=== PATIENT | male | born 1950 | race Caucasian/White ===

== ENCOUNTER 2016-12-08 01:09 | Inpatient (IN) ==
[2016-12-08] MEDS ORDERED: Vancomycin 1,000 MG in D5% in Water 250 ML IVPB ONE (01:16)
[2016-12-08] MEDS ORDERED: Levofloxacin 750 MG/150 ML 750 MG/150 ML BAG IVPB ONE (01:16)
[2016-12-08] MEDS ORDERED: Aztreonam 2,000 MG in D5% in Water (Mini-Bag+) 100 ML IVPB ONE (01:16)
[2016-12-08] MEDS: 0.9 % Sodium Chloride 1,000 ML IVC SCH ×4 (02:03→22:00)
[2016-12-08 02:11] LABS: Basophils % 0.1 %; Red Cell Distribution Width 14.6 % (11.5-14.5)
[2016-12-08 02:13] LABS: Hematocrit 34.8 % (37.5-50.1); Hemoglobin 10.9 g/dL (12.9-16.9); Immature Granulocytes % 1.7 % (0-4); Lymphocytes # 1.5 K/mcL (0.6-4.6); Lymphocytes % 5.4 %; Mean Corpuscular HGB Conc 31.3 g/dL (31.6-35.5); Mean Corpuscular Volume 92.6 fL (83.0-100.0); Mean Platelet Volume 11.1 fL (9.4-12.4); Monocytes % 7.3 %; Platelet Count 239 K/mcL (140-400); Red Blood Count 3.76 M/mcL (4.19-5.50); Segmented Neutrophils % 85.5 %
[2016-12-08 02:15] LABS: Neutrophils # 23.9 K/mcL (1.6-8.9)
[2016-12-08 02:16] LABS: INR 1.4; Prothrombin Time 15.7 Seconds (9.4-12.1)
[2016-12-08 02:26] LABS: Alanine Aminotransferase 19 Units/L (0-55); Albumin 2.4 g/dL (3.5-5.0); Albumin/Globulin Ratio 0.6 (1.1-2.2); Alkaline Phosphatase 50 Units/L (38-126); Aspartate Amino Transferase 21 Units/L (5-34); BUN/Creatinine Ratio 17 (6-26); Bilirubin,Direct 0.3 mg/dL (0.0-0.5); Bilirubin,Indirect 0.4 mg/dL (0.0-1.2); Bilirubin,Total 0.7 mg/dL (0.2-1.2); Blood Urea Nitrogen 19 mg/dL (8-26); Calcium 9.4 mg/dL (8.6-10.8); Carbon Dioxide 26 mEq/L (19-29); Chloride 109 mEq/L (98-109); Globulin 3.8 g/dL (2.4-3.5); Glucose 101 mg/dL (70-99); Magnesium 1.8 mg/dL (1.6-2.6); Osmolality,Calculated 296 (280-300); Phosphorous 4.7 mg/dL (2.3-4.7); Potassium 4.2 mEq/L (3.5-4.5); Sodium 142 mEq/L (136-145); Total Protein 6.2 g/dL (6.0-8.3); eGFR For African Americans > 60 (> 60); eGFR For Non-African Americans > 60 (> 60)
[2016-12-08 02:28] LABS: Platelet Estimate Normal (Normal); Reactive Lymphocytes Present (Not Present)
[2016-12-08 02:29] LABS: Hypersegmented Neutrophils Present (Not Present)
[2016-12-08 04:01] LABS: Bilirubin,Urine Small (Negative); Blood,Urine Large (Negative); Clarity,Urine Turbid (Clear); Color,Urine Dark Yellow (Yellow); Glucose,Urine (UA) Normal (Normal); Ketones,Urine Trace mg/dL (Negative); Leukocyte Esterase,Urine Moderate (Negative); Nitrite,Urine Negative (Negative); PH,Urine 5.5 pH Units (5.0-8.0); Protein,Urine 100 mg/dL (Neg-Trace); Specific Gravity,Urine 1.029 (1.010-1.025); Urobilinogen,Urine Normal (Normal)
[2016-12-08 04:08] LABS: WBC,Urine TNTC per hpf (0-3)
[2016-12-08 04:12] LABS: Bacteria,Urine Many per hpf (None-Few)
[2016-12-08 04:13] LABS: RBC,Urine Present per hpf (0-3)
--- NOTE | 2016-12-08 04:22 | Emergency Department Note ---
Disposition Clinical Impression: Pneumonia Qualifiers: Pneumonia type: due to unspecified organism Laterality: unspecified laterality Lung location: unspecified part of lung Qualified Code(s): J18.9 - Pneumonia, unspecified organism Fever Qualifiers: Fever type: unspecified Qualified Code(s): R50.9 - Fever, unspecified Urinary tract infection Qualifiers: Urinary tract infection type: acute cystitis Hematuria presence: without hematuria Qualified Code(s): N30.00 - Acute cystitis without hematuria Hypotension Qualifiers: Hypotension type: unspecified hypotension type Qualified Code(s): I95.9 - Hypotension, unspecified Urethral injury Qualifiers: Encounter type: initial encounter Qualified Code(s): S37.30XA - Unspecified injury of urethra, initial encounter Disposition: Admitted As Inpatient Condition: Fair Referrals: NO,PCP [Non-Partnered Physician] - Forms: Work/School Release, ED Satisfaction Letter Time of Disposition: 05:04 Fever HPI - General Chief Complaint: ED General Medical Stated Complaint: hypotension Time Seen by Provider: 12/08/16 01:16 Source: patient, EMS Limitations: no limitations Nursing Notes Reviewed: Yes Vital Signs Reviewed: Yes - History of Present Illness HPI Narrative: Patient presents from the [facility] for evaluation of fever and hypotension. He is not on the long-term care facilities there. If found to have altered mentation as well as a fever up to 104.1. There unable to treat these issues at their facility and recommended transfer to our facility for definitive management. Patient's primary care provider and power of civil attorney for medical decisions as his sister as she wanted him evaluated and treated. Pt Subjective Complaint: fever Onset (ago): Just LAP WINDER Temperature Source: oral Associated symptoms: Reports: cough Improves with: nothing Worsens with: nothing Treatments prior to arrival fever: none - Related Data Allergies Allergy/AdvReac Type Severity Reaction Status Date / Time Penicillins Allergy Anaphylaxis Verified 06/27/15 17:42 All systems ED: reviewed and negative except as stated. Constitutional: Reports: fever. Denies: chills Cardiovascular: Denies: chest pain, palpitations, dyspnea on exertion Respiratory: Reports: cough, sputum production. Denies: dyspnea, wheezes Gastrointestinal: Denies: abdominal pain, nausea, vomiting, diarrhea Genitourinary: Denies: dysuria, frequency Musculoskeletal: Denies: back pain, neck pain Integumentary: Denies: rash Neurological: Denies: headache Endocrine: Denies: fatigue Fever PMH - Past Medical History Medical history: Reports: seizures, thyroid disease, other Psychiatric history: Reports: anxiety, PTSD, prior suicide attempt, schizophrenia, previous psychiatric hospitalization, other - Social History Smoking Status: Former smoker Alcohol use: Reports: none Drug use: Reports: none Physical Exam - General Limitations: no limitations General appearance: alert - Head Head exam: atraumatic, normocephalic, normal inspection - Eye Eye exam: Present: normal appearance, PERRL, EOMI - ENT ENT exam: normal exam, normal oropharynx, mucous membranes moist - Neck Neck exam: Present: normal inspection, full ROM, trachea midline - Chest Chest inspection: Present: normal inspection, symmetric chest wall rise - Respiratory Respiratory exam: Present: normal lung sounds bilaterally - Cardiovascular Cardiovascular exam: Present: regular rate, normal rhythm, normal heart sounds - Abdominal Exam Abdominal exam: Present: soft, Non-Tender. Absent: tenderness, distention, guarding, rebound, rigidity, Gongora's sign, Rovsing's sign, tenderness at McBurney's Point - Extremities Exam Extremities exam: Present: normal inspection - Back Exam Back exam: Present: normal inspection - Neurological Exam Neurological exam: Present: alert, oriented X3, CN II-XII intact, normal gait - Skin Skin exam: Present: warm, dry, intact, normal color Course Course Narrative: Patient seen and examined the time of arrival. See history of present illness. 66-year-old male presents to emergency room for evaluation of fever and altered mental status from [facility]. He is in a long-term care facility there. There is concern using running no fever up to 104.1 as well as hypotension. Did not have the ability to manage his severe episode and decided to come into the ER for evaluation. Patient otherwise is no other acute issues or symptoms at this time. On presentation by EMS patient's blood pressure still been marginal at 72/40. He is mentating answering questions. His diminished lung sounds in the left side his heart is regular is not tachycardic. He has pupils are equal round reactive to light. His mucous membranes are slightly dry. His abdomen is soft nontender nondistended with no guarding or rigidity. Lower extremities are flaccid at this time of extremities he moves with purpose. Skin turgor is poor. Patient will have fluid hydration state. The 30 mg/kg dosing which should be approximately 2 mm at this time. Patient also to be given large doses of antibiotics broad- spectrum coverage including aztreonam, Levaquin, vancomycin. Patient will have evaluation a CT of the head chest x-ray and CT the abdomen along with urinalysis blood cultures to be collected. Patient is concerning for possible sepsis of unknown etiology. Most likely pulmonary or urinary tract infection this time. Patient is a pires of the replaced by [facility] as well as supposedly having a sister who is the patient's medical power of civil attorney. They are requesting to have full evaluation treatment course. Patient is to be treated as a full code. Disposition pending this workup and treatment course. 2 large-bore IVs fluid hydration and restart at this time. Disposition pending treatment - Reevaluation(s) Reevaluation #1: Patient on a significantly elevated white blood cell count of 28. Antibiotics were given. IV access is difficult secondary to poor vessels. Nursing is going to tentatively some midline for IV access this time. He was fluid responsive initially. Boluses were going. Heart rate has been stable patient is mentating appropriately this point. Disposition will be admission to the hospital for it appears to be focal infectious etiology secondary to pneumonia and urinary tract infection. Otherwise patient has been in no acute distress resting in the bed at this time. We will attempt to contact family to make sure this is within the wishes of the patient secondary to his baseline mentation issues. Admission process to be completed once this evaluation treatment course and resulted. Patient's family was contacted via home by the nursing staff. Evaluate for possible central line placement. Time: 04:42 Reevaluation #2: Blood pressures were stable at this time. Last blood pressure was 100/65. Patient still mentating appropriately. IV access to be completed here. Admission process to be completed once definitive IV access established Time: 05:46 Reevaluation #3: Patient removed his Franco with the balloon intact. There is bleeding from the urethral meatus. Patient will be placed in soft restraints and then IV line will be established in the internal jugular vein for definitive management. Patient is concerning for decompensation. This is done under the request of the family with verbal consent from the family is medical power of civil attorney.. Central line placement on a complication the right groin secondary to IV access. Patient did remove his Franco Time: 06:11 Additional Reevaluation(s): Information including the urethral injury as well as a central line were discussed with the daytime hospitalist. No other issues or concerns at this time. Assess to be completed this time Vital Signs Temperature 98.5 F 12/08/16 01:13 Pulse Rate 84 12/08/16 01:13 Respiratory Rate 20 12/08/16 01:13 Blood Pressure 80/45 12/08/16 01:13 O2 Sat by Pulse Oximetry 94 12/08/16 01:13 Temperature 98.5 F 12/08/16 01:13 Pulse Rate 85 12/08/16 01:50 Respiratory Rate 20 12/08/16 01:50 Blood Pressure 104/50 12/08/16 01:50 O2 Sat by Pulse Oximetry 100 12/08/16 01:50 Oxygen Delivery Oxygen Delivery Nasal Cannula Procedures - Central Line Placement Right Femoral Central Line Inserted*: Yes Central Line Catheter Replacement*: Yes Central Line Insertion: emergent Consent Obtained: verbal consent Procedural Pause: verify patient name and date of , timeout performed per policy, sunil and assess the site, assemble equipment and verify supplies, perform hand hygiene During the Procedure: clinician is wearing sterile gloves, cap, mask,& gown during insertion, sterile field and sterile technique are maintained, patient's face is covered with drape or mask and wearing a cap, everyone in room is wearing a mask Central Line Prep: Chlorhexidine scrub Prep the Procedure Site: apply chloraprep to the skin using a back and forth scrubbing motion, apply chloraprep for 30 seconds (upper body), 1-2 min ( femoral sites), drape the patient with a full body drape Local Anesthetic: lidocaine 1% Amount of anesthesia used (mL): 10 Ultrasound Used for Placement: No Central Line Lumen Inserted: triple Post Procedure: sutured in place, good blood return, all ports aspirated, flushed, capped, sterile dressing applied, guide wire removed and visualized, dressing is dated Fever - MDM Narrative Medical decision making narrative: Pneumonia, urinary tract infection, fever, hypotension, sepsis - Medical Records Medical records reviewed: Yes I reviewed the patient's medical records. - Lab Data Lab results reviewed: Yes I reviewed the patient's lab results. Result diagrams: 12/08/16 02:02 12/08/16 02:02 Lab Results 0712/08/16 12/08/16 Range/Units 02:02 02:02 02:02 WBC 28.0 H (4.3-11.1) K/mcL RBC 3.76 L (4.19-5.50) M/mcL Hgb 10.9 L (12.9-16.9) g/dL Hct 34.8 L (37.5-50.1) % MCV 92.6 (83.0-100.0) fL MCH 29.0 (28.0-33.3) pg MCHC 31.3 L (31.6-35.5) g/dL RDW 14.6 H (11.5-14.5) % Plt Count 239 (140-400) K/mcL MPV 11.1 (9.4-12.4) fL Immature Gran % 1.7 (0-4) % Seg Neutrophils % 85.5 % Lymphocytes % 5.4 % Monocytes % 7.3 % Eosinophils % 0.0 % Basophils % 0.1 % Neutrophils # 23.9 H (1.6-8.9) K/mcL Lymphocytes # 1.5 (0.6-4.6) K/mcL Monocytes # 2.0 H (0.0-1.3) K/mcL Eosinophils # 0.0 (0.0-0.6) K/mcL Basophils # 0.0 (0.0-0.2) K/mcL Hypersegmented Neuts Present A (Not Present) Reactive Lymphocytes Present A (Not Present) Platelet Estimate Normal (Normal) PT 15.7 H (9.4-12.1) Seconds INR 1.4 APTT 30.0 (26.0-36.0) Seconds Sodium 142 (136-145) mEq/L Potassium 4.2 (3.5-4.5) mEq/L Chloride 109 (98-109) mEq/L Carbon Dioxide 26 (19-29) mEq/L BUN 19 (8-26) mg/dL Creatinine 1.09 (0.72-1.25) mg/dL Est GFR ( Amer) > 60 (> 60) Est GFR (Non-Af Amer) > 60 (> 60) BUN/Creatinine Ratio 17 (6-26) Glucose 101 H (70-99) mg/dL Calculated Osmolality 296 (280-300) Lactic Acid (0.5-2.2) mmol/L Calcium 9.4 (8.6-10.8) mg/dL Phosphorus 4.7 (2.3-4.7) mg/dL Magnesium 1.8 (1.6-2.6) mg/dL Total Bilirubin 0.7 (0.2-1.2) mg/dL Direct Bilirubin 0.3 (0.0-0.5) mg/dL Indirect Bilirubin 0.4 (0.0-1.2) mg/dL AST 21 (5-34) Units/L ALT 19 (0-55) Units/L Alkaline Phosphatase 50 (38-126) Units/L Troponin I (0-0.03) ng/mL B-Natriuretic Peptide (0-100) pg/mL Serum Total Protein 6.2 (6.0-8.3) g/dL Albumin 2.4 L (3.5-5.0) g/dL Globulin 3.8 H (2.4-3.5) g/dL Albumin/Globulin Ratio 0.6 L (1.1-2.2) Urine Color (Yellow) Urine Clarity (Clear) Urine pH (5.0-8.0) pH Units Ur Specific Union (1.010-1.025) Urine Protein (Neg-Trace) mg/dL Urine Glucose (UA) (Normal) mg/dL Urine Ketones (Negative) mg/dL Urine Blood (Negative) Urine Nitrite (Negative) Urine Bilirubin (Negative) Urine Urobilinogen (Normal) mg/dL Ur Leukocyte Esterase (Negative) Urine Microscopic RBC (0-3) per hpf Urine Microscopic WBC (0-3) per hpf Urine Bacteria (None-Few) per hpf Ur Culture Indicated? (NO) 12/08/16 12/08/16 12/08/16 Range/Units 02:02 02:02 02:02 WBC (4.3-11.1) K/mcL RBC (4.19-5.50) M/mcL Hgb (12.9-16.9) g/dL Hct (37.5-50.1) % MCV (83.0-100.0) fL MCH (28.0-33.3) pg MCHC (31.6-35.5) g/dL RDW (11.5-14.5) % Plt Count (140-400) K/mcL MPV (9.4-12.4) fL Immature Gran % (0-4) % Seg Neutrophils % % Lymphocytes % % Monocytes % % Eosinophils % % Basophils % % Neutrophils # (1.6-8.9) K/mcL Lymphocytes # (0.6-4.6) K/mcL Monocytes # (0.0-1.3) K/mcL Eosinophils # (0.0-0.6) K/mcL Basophils # (0.0-0.2) K/mcL Hypersegmented Neuts (Not Present) Reactive Lymphocytes (Not Present) Platelet Estimate (Normal) PT (9.4-12.1) Seconds INR APTT (26.0-36.0) Seconds Sodium (136-145) mEq/L Potassium (3.5-4.5) mEq/L Chloride (98-109) mEq/L Carbon Dioxide (19-29) mEq/L BUN (8-26) mg/dL Creatinine (0.72-1.25) mg/dL Est GFR ( Amer) (> 60) Est GFR (Non-Af Amer) (> 60) BUN/Creatinine Ratio (6-26) Glucose (70-99) mg/dL Calculated Osmolality (280-300) Lactic Acid 2.0 (0.5-2.2) mmol/L Calcium (8.6-10.8) mg/dL Phosphorus (2.3-4.7) mg/dL Magnesium (1.6-2.6) mg/dL Total Bilirubin (0.2-1.2) mg/dL Direct Bilirubin (0.0-0.5) mg/dL Indirect Bilirubin (0.0-1.2) mg/dL AST (5-34) Units/L ALT (0-55) Units/L Alkaline Phosphatase (38-126) Units/L Troponin I 0.02 (0-0.03) ng/mL B-Natriuretic Peptide 78 (0-100) pg/mL Serum Total Protein (6.0-8.3) g/dL Albumin (3.5-5.0) g/dL Globulin (2.4-3.5) g/dL Albumin/Globulin Ratio (1.1-2.2) Urine Color (Yellow) Urine Clarity (Clear) Urine pH (5.0-8.0) pH Units Ur Specific Union (1.010-1.025) Urine Protein (Neg-Trace) mg/dL Urine Glucose (UA) (Normal) mg/dL Urine Ketones (Negative) mg/dL Urine Blood (Negative) Urine Nitrite (Negative) Urine Bilirubin (Negative) Urine Urobilinogen (Normal) mg/dL Ur Leukocyte Esterase (Negative) Urine Microscopic RBC (0-3) per hpf Urine Microscopic WBC (0-3) per hpf Urine Bacteria (None-Few) per hpf Ur Culture Indicated? (NO) 12/08/16 Range/Units 03:23 WBC (4.3-11.1) K/mcL RBC (4.19-5.50) M/mcL Hgb (12.9-16.9) g/dL Hct (37.5-50.1) % MCV (83.0-100.0) fL MCH (28.0-33.3) pg MCHC (31.6-35.5) g/dL RDW (11.5-14.5) % Plt Count (140-400) K/mcL MPV (9.4-12.4) fL Immature Gran % (0-4) % Seg Neutrophils % % Lymphocytes % % Monocytes % % Eosinophils % % Basophils % % Neutrophils # (1.6-8.9) K/mcL Lymphocytes # (0.6-4.6) K/mcL Monocytes # (0.0-1.3) K/mcL Eosinophils # (0.0-0.6) K/mcL Basophils # (0.0-0.2) K/mcL Hypersegmented Neuts (Not Present) Reactive Lymphocytes (Not Present) Platelet Estimate (Normal) PT (9.4-12.1) Seconds INR APTT (26.0-36.0) Seconds Sodium (136-145) mEq/L Potassium (3.5-4.5) mEq/L Chloride (98-109) mEq/L Carbon Dioxide (19-29) mEq/L BUN (8-26) mg/dL Creatinine (0.72-1.25) mg/dL Est GFR ( Amer) (> 60) Est GFR (Non-Af Amer) (> 60) BUN/Creatinine Ratio (6-26) Glucose (70-99) mg/dL Calculated Osmolality (280-300) Lactic Acid (0.5-2.2) mmol/L Calcium (8.6-10.8) mg/dL Phosphorus (2.3-4.7) mg/dL Magnesium (1.6-2.6) mg/dL Total Bilirubin (0.2-1.2) mg/dL Direct Bilirubin (0.0-0.5) mg/dL Indirect Bilirubin (0.0-1.2) mg/dL AST (5-34) Units/L ALT (0-55) Units/L Alkaline Phosphatase (38-126) Units/L Troponin I (0-0.03) ng/mL B-Natriuretic Peptide (0-100) pg/mL Serum Total Protein (6.0-8.3) g/dL Albumin (3.5-5.0) g/dL Globulin (2.4-3.5) g/dL Albumin/Globulin Ratio (1.1-2.2) Urine Color Dark Yellow (Yellow) Urine Clarity Turbid A (Clear) Urine pH 5.5 (5.0-8.0) pH Units Ur Specific Union 1.029 H (1.010-1.025) Urine Protein 100 H (Neg-Trace) mg/dL Urine Glucose (UA) Normal (Normal) mg/dL Urine Ketones Trace H (Negative) mg/dL Urine Blood Large H (Negative) Urine Nitrite Negative (Negative) Urine Bilirubin Small H (Negative) Urine Urobilinogen Normal (Normal) mg/dL Ur Leukocyte Esterase Moderate H (Negative) Urine Microscopic RBC Present (0-3) per hpf Urine Microscopic WBC TNTC H (0-3) per hpf Urine Bacteria Many H (None-Few) per hpf Ur Culture Indicated? YES A (NO) - Radiology Data Radiology results reviewed: Yes I reviewed the patient's radiology results. CT of the head is negative CT abdomen is negative for acute infectious etiology. Chest x-ray shows infiltrate on exam - EKG Data EKG attestation: Yes I reviewed and interpreted this EKG. EKG shows normal: sinus rhythm, axis, intervals, QRS complexes, ST-T waves Rate: normal Rhythm: NSR [place]lin/QRS: normal When compared to previous EKG there are: no significant changes Interpretation: no acute changes, unchanged when compared to prior tracing (date ) (06/27/15) Critical Care Time Critical Care Time: Yes Total Critical Care Time: 60 Attestation: Critical care performed: Time is exclusive of separately billable procedures. Time includes: direct patient care, patient reassessment, coordination of patient care, interpretation of data (laboratory data, radiology data, and respiratory data), review of patient's medical records, medical consultation and documentation of patient care. Procedures included in critical care time: Procedures excluded from critical care time:
[2016-12-08] MEDS ORDERED: 0.9 % Sodium Chloride 1,000 ML ONE (06:40)
[2016-12-08] MEDS ORDERED: Acetaminophen 325 MG TABLET PO PRN (08:38)
[2016-12-08] MEDS ORDERED: Naloxone 0.4 MG/ML INJ IVP PRN (08:38)
--- NOTE | 2016-12-08 08:43 | Internal Med History&Physical ---
Date of Encounter: 12/08/16 Time of Encounter: 08:15 Assessment and Plan (1) Pneumonia Current visit: Yes Status: Acute Patient has no documented fever or tachycardia in the emergency room, he does have leukocytosis and low blood pressure which may be his baseline. Lactic acid noted to be normal. Chest x-ray and CT abdomen show right lower lobe infiltrate. IV hydration. Continue broad-spectrum IV antibiotics for healthcare associated pneumonia-IV vancomycin, Levaquin, aztreonam. Follow-up blood cultures. Supplemental oxygen and supportive care. Qualifiers: Pneumonia type: due to unspecified organism Laterality: right Lung location: lower lobe of lung Qualified Code(s): J18.1 - Lobar pneumonia, unspecified organism (2) Urinary tract infection Current visit: Yes Status: Acute Urinalysis shows turbid urine with moderate leukocyte esterase, too numerous to count WBC and moderate bacteria. Follow-up urine culture and continue IV antibiotics as above. Patient denies urinary complaints. He self removed Franco catheter that was placed in the emergency room with associated urethral trauma and cross hematuria briefly. Currently resolved. Supportive care. Qualifiers: Urinary tract infection type: acute cystitis Hematuria presence: without hematuria Qualified Code(s): N30.00 - Acute cystitis without hematuria (3) Hypotension Current visit: Yes Status: Acute Less likely septic shock as patient is noted to have normal lactic acid and is at baseline mental status. He does not have ReFlex tachycardia, blood pressure may be at his baseline. Continue IV hydration and monitor closely. Mean arterial pressure remains normal. Qualifiers: Hypotension type: unspecified hypotension type Qualified Code(s): I95.9 - Hypotension, unspecified (4) Seizure disorder Current visit: Yes Status: Chronic Resume all medications. Seizure precautions. (5) Hypothyroidism Current visit: Yes Status: Chronic Continue levothyroxine. Qualifiers: Hypothyroidism type: unspecified Qualified Code(s): E03.9 - Hypothyroidism , unspecified (6) PTSD (post-traumatic stress disorder) Current visit: Yes Status: Chronic (7) Schizophrenia Current visit: Yes Status: Chronic Patient is noted to be on multiple psychiatric medications including SSRIs, benzodiazepines, including when necessary Ativan and Haldol. He is currently unable to answer questions although he is oriented to self and knows that he is in [facility]. Qualifiers: Schizophrenia type: unspecified Qualified Code(s): F20.9 - Schizophrenia, unspecified (8) Anxiety Current visit: Yes Status: Chronic Internal Medicine - H&P: HPI Chief complaint: Fever, hypotension Admitted From: Emergency Dept Plans for Post Hospital Care: Transfer Residential Facility History of present illness: Mr. Ralph is a 66 year old male with history of schizophrenia, seizure disorder and hypothyroidism, who was sent from extended care facility at the [place] for evaluation of fever and low blood pressure. Patient is unable to provide history, which is obtained from review of emergency room records. Patient is a pires of the [facility] and his medical power of attorney at law is noted to be his sister according to the [facility] notes. He was noted to have spiked a fever up to 104 degrees Fahrenheit at the [facility] along with a recording of low blood pressure. No documented complaints like chest pain, abdominal pain , nausea/vomiting, diarrhea. Initial workup in the emergency room revealed leukocytosis and possible pneumonia and UTI and patient received IV hydration and broad-spectrum IV antibiotics. He got confused and agitated in the emergency room and pulled out Franco catheter causing urethral trauma and significant gross hematuria, which is currently resolved. His blood pressure was also noted to be fluctuating with several low readings with systolic blood pressure in mid 70s. He did not receive a right femoral central line due to difficulty obtaining peripheral IV access. Patient was placed on soft wrist restraints after this episode. He is currently unable to provide any details about his presentation but continually asks for taking him off the restraints. Past Med Surg Social Fam HX - Past Medical History Medical history: seizures, thyroid disease, other Psychiatric history: anxiety, PTSD, prior suicide attempt, schizophrenia, previous psychiatric hospitalization, other - Past Surgical History Surgical History: no surgical history (unable to obtain due to patient's mental status) - Social History Smoking Status: Former smoker Smokeless Tobacco Status: No Alcohol use: none Drug use: none Occupational status: disabled Current living situation: ECF Activity Level: Wheelchair bound Recent Out of Country Travel Within the Last 8 Weeks: No - Additional Family History Additional family history: cannot be obtained due to patient's mental status Internal Medicine - H&P: Meds Acetaminophen [Tylenol Arthritis] 650 mg PO TID PRN MDD 3000MG 12/08/16 [History ] Aspirin 81 mg PO DAILY 12/08/16 [History] Bisacodyl [Dulcolax] 10 mg PO QAM 12/08/16 [History] Cholecalciferol (D-3) [Vitamin D] 1,000 unit PO DAILY 12/08/16 [History] Docusate [Colace] 200 mg PO BID 12/08/16 [History] Haloperidol Lactate [Haldol] 5 mg IM Q2H PRN 12/08/16 [History] Haloperidol Oral Conc [Haldol] 10 mg PO HS 12/08/16 [History] Ibuprofen [Motrin] 400 mg PO Q6HR PRN 12/08/16 [History] LORazepam [Ativan] 1 mg PO QID PRN 12/08/16 [History] LORazepam [Lorazepam Intensol] 1 ml IM Q6H PRN 12/08/16 [History] Levothyroxine [Synthroid] 75 mcg PO 0630 12/08/16 [History] [place] Citrate [[place]] 8 meq PO HS 12/08/16 [History] Mag Hydrox/Aluminum Hyd/Simeth [Cvs Antacid-Antigas Liquid] 16 ml PO QID PRN MDD 60ML 12/08/16 [History] Multivitamin [Multi-Day Vitamins] 1 tab PO DAILY 12/08/16 [History] OLANZapine [Zyprexa Zydis] 5 mg PO BID 12/08/16 [History] Polyethylene Glycol 3350 [MiraLAX] 17 gm PO BID 12/08/16 [History] RisperiDONE MICROSPHERES [RisperDAL CONSTA] 37.5 mg IM Q2W 12/08/16 [History] RisperiDONE [Risperidone Odt] 1 mg PO DAILY 12/08/16 [History] RisperiDONE [Risperidone Odt] 4 mg PO HS 12/08/16 [History] Valproic Acid Oral Soln [Depakene Oral Soln] 500 mg PO BID 12/08/16 [History] Zinc Oxide [Diaper Rash Ointment] 1 appl TP BID 12/08/16 [History] Allergies Penicillins Allergy (Verified 06/27/15 17:42) Anaphylaxis All Systems PM: A 10-system review of systems was performed and is negative for pertinent findings except as documented above in the HPI. - Constitutional Constitutional: fever(s) - EENT Eyes: no change in vision, no discharge, no pain, no photophobia Ears: no ear discharge, no ear pain, no tinnitus Nose, mouth and throat: no dysphagia, no nasal discharge, no neck pain, no sore throat - Cardiovascular Cardiovascular ROS IM: no chest pain, no diaphoresis, no dyspnea, no lightheadedness, no palpitations, no syncope - Respiratory Respiratory: no cough, no dyspnea, no wheezing, no excessive phlegm production - Gastrointestinal Gastrointestinal: no abdominal pain, no diarrhea, no hematemesis, no hematochezia, no melena, no nausea, no vomiting - Musculoskeletal Musculoskeletal ROS IM: no numbness, no tingling - Integumentary Integumentary IM: no rash, no unusual bruising - Neurological Neurological ROS: confusion - Hematologic/Lymphatic Hematologic/Lymphatic: no easy bruising - Constitutional Vitals: Temp Pulse Resp BP Pulse Ox 98.2 F 76 18 89/48 99 12/08/16 07:58 12/08/16 07:58 12/08/16 07:58 12/08/16 07:58 12/08/16 07:58 General appearance: Present: A&O X 2. Absent: answers questions appropriately - Respiratory Respiratory exam: Present: CTAB (uncooperative to exam as he talks continuously) . Absent: accessory muscle use, rales, rhonchi, wheezes - Cardiovascular Cardiovascular exam: Present: RRR, +S1, +S2, tachycardia. Absent: diastolic murmur, gallop, rubs, systolic murmur - GI/Abdominal GI/Abdominal exam: Present: normal bowel sounds, soft, no peritoneal signs. Absent: distended, tenderness - Extremities Exam Extremities exam: Present: normal inspection (B/L LE atrophy), warm, radial pulses palpable and symetrical. Absent: calf tenderness, cyanotic, pedal edema - Neurological Exam Neurological exam: Present: altered, CN II-XII intact, no focal deficits (moves B/L upper extremities spontaneously). Absent: pronater drift, facial droop, speech deficit - Skin Skin exam: Present: dry, intact Internal Med - H&P Results - Labs CBC & Chem 7: 12/08/16 02:02 12/08/16 02:02 - EKG Data -: EKG Interpreted by Myself (low voltage in precordial leads) EKG shows normal: sinus rhythm Rate: normal
[2016-12-08] MEDS ORDERED: Vancomycin 1,000 MG in D5% in Water 250 ML IVPB SCH (09:00)
[2016-12-08] MEDS: Aztreonam 1,000 MG in D5% in Water (Mini-Bag+) 100 ML IVPB SCH ×2 (10:21→16:32)
[2016-12-08] MEDS ORDERED: *HR* LORazepam 1 MG TABLET PO PRN (12:15)
[2016-12-08] MEDS: Valproic Acid Oral Soln 250 MG/5 ML UDC PO SCH (16:31)
[2016-12-08] MEDS: *HR* Heparin 5,000 UNIT/ML VIAL SQ SCH (16:32)
[2016-12-08] MEDS ORDERED: Lidocaine Jelly 11 ml Syringe MM PRN (19:40)
[2016-12-08] MEDS ORDERED: Haloperidol Oral Conc 10 MG/5 ML UDC PO SCH (21:00)
[2016-12-08] MEDS ORDERED: risperiDONE 1 MG, risperiDONE 3 MG PO SCH (21:00)
[2016-12-08] MEDS ORDERED: RISPERIDONE 4 MG PO SCH (21:00)
[2016-12-09] MEDS: OLANZapine 5 MG TAB.RAPDIS PO SCH ×2 (00:04→08:30)
[2016-12-09] MEDS: *HR* Heparin 5,000 UNIT/ML VIAL SQ SCH ×3 (00:05→16:56)
[2016-12-09] MEDS: Valproic Acid Oral Soln 250 MG/5 ML UDC PO SCH ×2 (00:06→08:29)
[2016-12-09] MEDS: Aztreonam 1,000 MG in D5% in Water (Mini-Bag+) 100 ML IVPB SCH ×2 (00:06→08:22)
[2016-12-09] MEDS ORDERED: Vancomycin 1,000 MG in D5% in Water 250 ML IVPB SCH (04:00)
[2016-12-09 06:14] LABS: Basophils % 0.1 %; Eosinophils % 0.2 %; Hematocrit 28.3 % (37.5-50.1); Immature Granulocytes % 2.5 % (0-4); Lymphocytes # 1.1 K/mcL (0.6-4.6); Lymphocytes % 4.9 %; Mean Corpuscular HGB Conc 30.7 g/dL (31.6-35.5); Mean Corpuscular Hemoglobin 28.7 pg (28.0-33.3); Mean Corpuscular Volume 93.4 fL (83.0-100.0); Mean Platelet Volume 11.2 fL (9.4-12.4); Monocytes # 0.8 K/mcL (0.0-1.3); Monocytes % 3.6 %; Neutrophils # 19.8 K/mcL (1.6-8.9); Platelet Count 176 K/mcL (140-400); Red Blood Count 3.03 M/mcL (4.19-5.50); Red Cell Distribution Width 14.6 % (11.5-14.5); Segmented Neutrophils % 88.7 %
[2016-12-09 06:24] LABS: Hemoglobin 8.7 g/dL (12.9-16.9)
[2016-12-09 06:26] LABS: BUN/Creatinine Ratio 26 (6-26); Blood Urea Nitrogen 22 mg/dL (8-26); Calcium 8.2 mg/dL (8.6-10.8); Carbon Dioxide 23 mEq/L (19-29); Chloride 112 mEq/L (98-109); Glucose 81 mg/dL (70-99); Osmolality,Calculated 288 (280-300); Potassium 3.9 mEq/L (3.5-4.5); Sodium 138 mEq/L (136-145); eGFR For African Americans > 60 (> 60); eGFR For Non-African Americans > 60 (> 60)
[2016-12-09] MEDS: Aspirin 81 MG TAB.CHEW PO SCH (08:29)
[2016-12-09] MEDS: Haloperidol Lactate 5 MG/ML VIAL IVP PRN (08:32)
[2016-12-09] MEDS ORDERED: RisperiDONE-M 1 MG TAB.RAPDIS PO SCH (09:00)
[2016-12-09] MEDS ORDERED: Multivit/Ca/Min/Fe/FA 1 TAB TABLET PO SCH (09:00)
[2016-12-09] MEDS: Valproic Acid INJ 500 MG in 0.9 % Sodium Chloride 100 ML IVPB SCH ×2 (11:00→21:38)
[2016-12-09] MEDS: Pantoprazole 40 MG VIAL IVP SCH (11:03)
[2016-12-09] MEDS: OLANZapine 10 MG VIAL IM SCH ×2 (11:06→21:45)
[2016-12-09] MEDS: Levofloxacin 750 MG/150 ML 750 MG/150 ML BAG IVPB SCH (12:22)
[2016-12-09] MEDS ORDERED: Magnesium Sulfate 1 GM in D5% in Water 100 ML IVPB ONE (14:00)
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
[2016-12-09] MEDS ORDERED: Haloperidol Lactate 5 MG/ML VIAL IVP SCH (21:00)
[2016-12-09] MEDS ORDERED: RisperiDONE MICROSPHERES 25 MG/2 ML SYRINGE IM SCH (21:00)
[2016-12-10] MEDS: *HR* Heparin 5,000 UNIT/ML VIAL SQ SCH ×3 (00:26→15:46)
[2016-12-10 04:34] LABS: Basophils % 0.1 %; Eosinophils % 0.4 %; Hematocrit 27.6 % (37.5-50.1); Hemoglobin 8.4 g/dL (12.9-16.9); Immature Granulocytes % 0.6 % (0-4); Lymphocytes # 0.9 K/mcL (0.6-4.6); Lymphocytes % 10.4 %; Mean Corpuscular HGB Conc 30.4 g/dL (31.6-35.5); Mean Corpuscular Hemoglobin 28.1 pg (28.0-33.3); Mean Corpuscular Volume 92.3 fL (83.0-100.0); Mean Platelet Volume 11.2 fL (9.4-12.4); Monocytes # 0.4 K/mcL (0.0-1.3); Monocytes % 4.5 %; Neutrophils # 6.9 K/mcL (1.6-8.9); Platelet Count 143 K/mcL (140-400); Red Blood Count 2.99 M/mcL (4.19-5.50)
[2016-12-10 04:47] LABS: BUN/Creatinine Ratio 22 (6-26); Blood Urea Nitrogen 16 mg/dL (8-26); Calcium 7.9 mg/dL (8.6-10.8); Carbon Dioxide 25 mEq/L (19-29); Chloride 112 mEq/L (98-109); Glucose 84 mg/dL (70-99); Magnesium 1.4 mg/dL (1.6-2.6); Osmolality,Calculated 286 (280-300); Potassium 3.6 mEq/L (3.5-4.5); Sodium 138 mEq/L (136-145); eGFR For African Americans > 60 (> 60); eGFR For Non-African Americans > 60 (> 60)
[2016-12-10] MEDS ORDERED: Vancomycin 1,000 MG in D5% in Water 250 ML IVPB SCH (05:00)
[2016-12-10] MEDS: Pantoprazole 40 MG VIAL IVP SCH (08:20)
[2016-12-10] MEDS: Valproic Acid INJ 500 MG in 0.9 % Sodium Chloride 100 ML IVPB SCH ×2 (08:21→20:01)
[2016-12-10] MEDS: Aspirin 81 MG TAB.CHEW PO SCH (08:23)
[2016-12-10] MEDS: Levofloxacin 750 MG/150 ML 750 MG/150 ML BAG IVPB SCH (08:23)
[2016-12-10] MEDS: OLANZapine 10 MG VIAL IM SCH (09:59)
--- NOTE | 2016-12-10 10:09 | Electrocardiograph Report ---
[place] [id number] Test Date: 2016-12-08 Pat Name: Efrain Ralph Department: 105 Room: 2N13 Gender: M Community Services Coordinator: RANJEET : 1950 Requested By: Jamir Woo Order Number: [id number] Reading MD: Jacek Zeng MD Measurements Intervals [place] Rate: 84 P: 72 MN: 176 QRS: 65 QRSD: 82 T: 61 QT: 278 QTc: 319 Interpretive Statements SINUS RHYTHM BASELINE ARTIFACT Electronically Signed On 12-10-2016 10:08:01 EDT by Jacek Zeng MD
[2016-12-10] MEDS ORDERED: Magnesium Sulfate 1 GM in D5% in Water 100 ML IVPB ONE (10:19)
[2016-12-10] MEDS ORDERED: Magnesium Oxide 400 MG TABLET PO SCH (10:30)
[2016-12-10] MEDS: Haloperidol Lactate 5 MG/ML VIAL IVP PRN (10:49)
[2016-12-10] MEDS ORDERED: Acetaminophen 325 MG TABLET PO PRN (15:10)
[2016-12-10] MEDS ORDERED: Haloperidol Lactate 5 MG/ML VIAL IVP PRN (15:10)
[2016-12-10] MEDS ORDERED: Lidocaine Jelly 11 ml Syringe MM PRN (15:10)
--- NOTE | 2016-12-10 17:16 | Internal Med Progress Note ---
Date of Encounter: 12/10/16 Time of Encounter: 12:30 - Assessment and plan (1) Pneumonia Current Visit: Yes Status: Acute Assessment and plan: Bacterial right lower lobe pneumonia. CT of the abdomen revealed right lower lobe infiltrate. WBC 22. Urine culture negative. Blood cultures are negative so far. Clinically improving. Stop IV vancomycin. Continue IV Levaquin. Qualifiers: Pneumonia type: due to unspecified organism Laterality: right Lung location: lower lobe of lung Qualified Code(s): J18.1 - Lobar pneumonia, unspecified organism (2) Hypotension Current Visit: Yes Status: Resolved Assessment and plan: Hypovolemic hypotension due to infection. Resolved. Continue IV fluids. Qualifiers: Hypotension type: unspecified hypotension type Qualified Code(s): I95.9 - Hypotension, unspecified (3) Hematuria Current Visit: Yes Status: Acute Assessment and plan: Secondary to the [place] removal of Franco catheter by patient. Slowly improving. Continue to monitor. Qualifiers: Hematuria type: gross Qualified Code(s): R31.0 - Gross hematuria (4) Schizophrenia Current Visit: Yes Status: Chronic Assessment and plan: Patient refusing to take oral medications. Changed medications to IV including IV Zyprexa, and Haldol Qualifiers: Schizophrenia type: unspecified Qualified Code(s): F20.9 - Schizophrenia, unspecified (5) Seizure disorder Current Visit: Yes Status: Chronic Assessment and plan: Changed home dose of valproate acid to IV due to noncompliance with oral medications. (6) Hypothyroidism Current Visit: Yes Status: Chronic Assessment and plan: Continue home medications. Qualifiers: Hypothyroidism type: unspecified Qualified Code(s): E03.9 - Hypothyroidism , unspecified (7) PTSD (post-traumatic stress disorder) Current Visit: Yes Status: Chronic - Subjective Interval history: Patient has history of schizophrenia. He is eating his breakfast this morning. He has no complaints. - Constitutional Vitals: Temp Pulse Resp BP Pulse Ox 98.1 F 62 15 110/69 98 12/10/16 11:35 12/10/16 15:00 12/10/16 11:35 12/10/16 11:35 12/10/16 11:35 General appearance: Present: cooperative, A&O X 2, pleasant, no acute distress. Absent: answers questions appropriately - Neck Neck exam general surgery: Present: supple, trachea midline. Absent: lymphadenopathy - Respiratory Respiratory exam: Present: rhonchi - Cardiovascular Cardiovascular exam: Present: RRR - GI/Abdominal GI/Abdominal exam: Present: normal bowel sounds, soft. Absent: distended, tenderness - Extremities Exam Extremities exam: Absent: pedal edema - Neurological Exam Neurological exam: Present: alert, oriented X3. Absent: facial droop, speech deficit - Skin Skin exam: Absent: rash Internal Medicine: Result - Labs CBC & Chem 7: 12/10/16 04:10 12/10/16 04:10 Labs: Short CBC 12/10/16 Range/Units 04:10 WBC 8.2 D (4.3-11.1) K/mcL Hgb 8.4 L (12.9-16.9) g/dL Hct 27.6 L (37.5-50.1) % Plt Count 143 (140-400) K/mcL Neutrophils # 6.9 (1.6-8.9) K/mcL BMP 12/10/16 04:10 Sodium 138 Potassium 3.6 Chloride 112 H Carbon Dioxide 25 BUN 16 Creatinine 0.74 Glucose 84 Calcium 7.9 L - ABG Interpretation ABG results: PT/INR, D-dimer PT 15.7 Seconds (9.4-12.1) H 12/08/16 02:02 - Impressions Impressions Gallbladder Ultrasound 12/10/16 08:30 IMPRESSION: Abnormal appearance of the gallbladder with thickened wall and cholelithiasis. No sonographic evidence of acute cholecystitis. If there is clinical concern for biliary dysfunction a nuclear medicine hepatobiliary scan could always be considered. Trace amount of pleural fluid on the right. D/ / 12/10/2016 10:00:27 Dinesh Petersen MD / mayra Interpreting Provider: Dinesh Petersen MD Consult Discharge Plan - Plan [facility]errals: [facility] [Primary Care Provider] - (Pt lives at the [facility] No PCP appointment needed)
[2016-12-10] MEDS: Haloperidol Lactate 5 MG/ML VIAL IVP SCH (20:00)
[2016-12-10] MEDS: Magnesium Oxide 400 MG TABLET PO SCH (20:04)
[2016-12-10] MEDS ORDERED: LITHIUM CITRATE 8 MEQ PO SCH (21:00)
[2016-12-11] MEDS: *HR* Heparin 5,000 UNIT/ML VIAL SQ SCH ×4 (00:45→16:37)
[2016-12-11] MEDS: OLANZapine 10 MG VIAL IM SCH ×3 (01:18→20:15)
[2016-12-11] MEDS: Magnesium Oxide 400 MG TABLET PO SCH ×2 (07:50→20:14)
[2016-12-11] MEDS: Valproic Acid INJ 500 MG in 0.9 % Sodium Chloride 100 ML IVPB SCH ×2 (07:51→20:05)
[2016-12-11] MEDS: Aspirin 81 MG TAB.CHEW PO SCH (07:51)
[2016-12-11] MEDS: Pantoprazole 40 MG VIAL IVP SCH (07:52)
[2016-12-11 08:14] LABS: Basophils % 0.4 %; Eosinophils # 0.1 K/mcL (0.0-0.6); Hematocrit 31.2 % (37.5-50.1); Hemoglobin 9.6 g/dL (12.9-16.9); Lymphocytes # 0.8 K/mcL (0.6-4.6); Lymphocytes % 16.3 %; Mean Corpuscular HGB Conc 30.8 g/dL (31.6-35.5); Mean Platelet Volume 11.8 fL (9.4-12.4); Monocytes # 0.5 K/mcL (0.0-1.3); Monocytes % 9.1 %; Neutrophils # 3.7 K/mcL (1.6-8.9); Nucleated Red Blood Cells 0.4 /100 WBC (0); Platelet Count 176 K/mcL (140-400); Red Blood Count 3.43 M/mcL (4.19-5.50); Red Cell Distribution Width 13.9 % (11.5-14.5); Segmented Neutrophils % 72.2 %
[2016-12-11 08:32] LABS: BUN/Creatinine Ratio 18 (6-26); Blood Urea Nitrogen 12 mg/dL (8-26); Calcium 8.1 mg/dL (8.6-10.8); Carbon Dioxide 25 mEq/L (19-29); Chloride 111 mEq/L (98-109); Glucose 88 mg/dL (70-99); Magnesium 1.4 mg/dL (1.6-2.6); Osmolality,Calculated 287 (280-300); Potassium 3.4 mEq/L (3.5-4.5); Sodium 139 mEq/L (136-145); eGFR For African Americans > 60 (> 60); eGFR For Non-African Americans > 60 (> 60)
[2016-12-11] MEDS ORDERED: Aminoglycoside Consult 1 EACH MC ONE (09:18)
[2016-12-11] MEDS ORDERED: Magnesium Sulfate 1 GM in D5% in Water 100 ML IVPB ONE (09:27)
[2016-12-11] MEDS: Levofloxacin 750 MG/150 ML 750 MG/150 ML BAG IVPB SCH (11:06)
--- NOTE | 2016-12-11 17:14 | Internal Med Progress Note ---
Date of Encounter: 12/11/16 Time of Encounter: 17:14 - Assessment and plan (1) Pneumonia Current Visit: Yes Status: Acute Assessment and plan: Bacterial right lower lobe pneumonia. CT of the abdomen revealed right lower lobe infiltrate. WBC 22. Urine culture negative. Blood cultures are negative so far. Clinically improving slowly. Continue IV Levaquin. stop IV fluids. Qualifiers: Pneumonia type: due to unspecified organism Laterality: right Lung location: lower lobe of lung Qualified Code(s): J18.1 - Lobar pneumonia, unspecified organism (2) Hypotension Current Visit: Yes Status: Resolved Assessment and plan: Hypovolemic hypotension due to infection. Resolved. stop IV fluids. Qualifiers: Hypotension type: unspecified hypotension type Qualified Code(s): I95.9 - Hypotension, unspecified (3) Hematuria Current Visit: Yes Status: Acute Assessment and plan: Secondary to the [place] removal of Franco catheter by patient. Slowly improving. Continue to monitor. Qualifiers: Hematuria type: gross Qualified Code(s): R31.0 - Gross hematuria (4) Schizophrenia Current Visit: Yes Status: Chronic Assessment and plan: Patient refusing to take oral medications. Changed medications to IV including IV Zyprexa, and Haldol Qualifiers: Schizophrenia type: unspecified Qualified Code(s): F20.9 - Schizophrenia, unspecified (5) Seizure disorder Current Visit: Yes Status: Chronic Assessment and plan: Changed home dose of valproate acid to IV due to noncompliance with oral medications. (6) Hypothyroidism Current Visit: Yes Status: Chronic Assessment and plan: Continue home medications. Qualifiers: Hypothyroidism type: unspecified Qualified Code(s): E03.9 - Hypothyroidism , unspecified (7) PTSD (post-traumatic stress disorder) Current Visit: Yes Status: Chronic - Subjective Interval history: Patient has history of schizophrenia. - Constitutional Vitals: Temp Pulse Resp BP Pulse Ox 97.9 F 73 16 129/74 95 12/11/16 16:19 12/11/16 16:19 12/11/16 16:19 12/11/16 16:19 12/11/16 16:19 General appearance: Present: cooperative, A&O X 2, pleasant, no acute distress. Absent: answers questions appropriately - Eye Eye exam: Present: PERRL, sclera anicteric - Neck Neck exam general surgery: Present: supple, trachea midline. Absent: lymphadenopathy - Respiratory Respiratory exam: Present: CTAB - Cardiovascular Cardiovascular exam: Present: RRR - GI/Abdominal GI/Abdominal exam: Present: normal bowel sounds, soft. Absent: distended, tenderness - Extremities Exam Extremities exam: Absent: pedal edema - Back Exam Back exam: Absent: CVA tenderness (L), CVA tenderness (R) - Neurological Exam Neurological exam: Present: alert, no focal deficits, pronater drift. Absent: facial droop, speech deficit Internal Medicine: Result - Labs CBC & Chem 7: 12/11/16 07:40 12/11/16 07:40 Labs: Short CBC 12/11/16 Range/Units 07:40 WBC 5.2 (4.3-11.1) K/mcL Hgb 9.6 L (12.9-16.9) g/dL Hct 31.2 L (37.5-50.1) % Plt Count 176 (140-400) K/mcL Neutrophils # 3.7 (1.6-8.9) K/mcL BMP 12/11/16 07:40 Sodium 139 Potassium 3.4 L Chloride 111 H Carbon Dioxide 25 BUN 12 Creatinine 0.65 L Glucose 88 Calcium 8.1 L - ABG Interpretation ABG results: PT/INR, D-dimer PT 15.7 Seconds (9.4-12.1) H 12/08/16 02:02 Consult Discharge Plan - Plan [facility]errals: [facility] [Primary Care Provider] - (Pt lives at the [place] No PCP appointment needed)
[2016-12-11] MEDS: Haloperidol Lactate 5 MG/ML VIAL IVP SCH (20:00)
[2016-12-12] MEDS: *HR* Heparin 5,000 UNIT/ML VIAL SQ SCH ×2 (00:15→08:10)
--- NOTE | 2016-12-12 07:43 | Discharge Summary ---
Date of Encounter: 12/12/16 Time of Encounter: 07:41 - Discharge Diagnosis (1) Pneumonia Priority: Primary Status: Acute Qualifiers: Pneumonia type: due to unspecified organism Laterality: right Lung location: lower lobe of lung Qualified Code(s): J18.1 - Lobar pneumonia, unspecified organism (2) Hypotension Priority: Primary Status: Resolved Qualifiers: Hypotension type: unspecified hypotension type Qualified Code(s): I95.9 - Hypotension, unspecified (3) Hematuria Priority: Primary Status: Resolved Qualifiers: Hematuria type: gross Qualified Code(s): R31.0 - Gross hematuria (4) Schizophrenia Priority: Secondary Status: Chronic Qualifiers: Schizophrenia type: unspecified Qualified Code(s): F20.9 - Schizophrenia, unspecified (5) Seizure disorder Priority: Secondary Status: Chronic (6) Hypothyroidism Priority: Secondary Status: Chronic Qualifiers: Hypothyroidism type: unspecified Qualified Code(s): E03.9 - Hypothyroidism , unspecified (7) PTSD (post-traumatic stress disorder) Priority: Secondary Status: Chronic - Discharge Medications Home Medications: Acetaminophen [Tylenol Arthritis] 650 mg PO TID PRN MDD 3000MG 12/08/16 [History ] Aspirin 81 mg PO DAILY 12/08/16 [History] Bisacodyl [Dulcolax] 10 mg PO QAM 12/08/16 [History] Cholecalciferol (D-3) [Vitamin D] 1,000 unit PO DAILY 12/08/16 [History] Docusate [Colace] 200 mg PO BID 12/08/16 [History] Haloperidol Lactate [Haldol] 5 mg IM Q2H PRN 12/08/16 [History] Haloperidol Oral Conc [Haldol] 10 mg PO HS 12/08/16 [History] Ibuprofen [Motrin] 400 mg PO Q6HR PRN 12/08/16 [History] LORazepam [Ativan] 1 mg PO QID PRN 12/08/16 [History] LORazepam [Lorazepam Intensol] 1 ml IM Q6H PRN 12/08/16 [History] Levothyroxine [Synthroid] 75 mcg PO 0630 12/08/16 [History] [place] Citrate [[place]] 8 meq PO HS 12/08/16 [History] Mag Hydrox/Aluminum Hyd/Simeth [Cvs Antacid-[place] Liquid] 16 ml PO QID PRN MDD 60ML 12/08/16 [History] Multivitamin [Multi-Day Vitamins] 1 tab PO DAILY 12/08/16 [History] OLANZapine [Zyprexa Zydis] 5 mg PO BID 12/08/16 [History] Polyethylene Glycol 3350 [MiraLAX] 17 gm PO BID 12/08/16 [History] RisperiDONE MICROSPHERES [RisperDAL CONSTA] 37.5 mg IM Q2W 12/08/16 [History] RisperiDONE [Risperidone Odt] 1 mg PO DAILY 12/08/16 [History] RisperiDONE [Risperidone Odt] 4 mg PO HS 12/08/16 [History] Valproic Acid Oral Soln [Depakene Oral Soln] 500 mg PO BID 12/08/16 [History] Zinc Oxide [Diaper Rash Ointment] 1 appl TP BID 12/08/16 [History] Magnesium Oxide [Mag-Ox] 400 mg PO BID tab 12/12/16 [Rx] Allergies/Adverse Reactions: Allergies Penicillins Allergy (Verified 06/27/15 17:42) Anaphylaxis Procedures/tests Complete & Pending: Procedures Performed prior 72 hours Category Date Time Status US gall bladder [US] Routine Exams 12/10/16 08:30 Completed Date of admission: 12/08/16 08:38 Primary care physician: PCP [place] Consults: 12/08/16 14:55 Consult to Nutrition [CONS] Routine Comment: Consulting Provider: NUTRITION Reason for Dietary Consult: PO Supplementation Diet Education - Patient Status Disposition: Transfer SNF Condition: Good Functional capacity at discharge: wheelchair bound Overall status at discharge: patient is back to baseline - Discharge Instructions [facility] - (Pt lives [facility] No PCP appointment needed) - Diet and Activity Activity: resume usual activities as tolerated Diet: regular diet (supplements with meals) Interval History: patient has no complains. he wants to have his breakfast here before being transferred back to the [place]. Hospital course: Mr. Ralph is a 66 year old male with past medical history of schizophrenia, seizure disorder and hypothyroidism, who was sent from extended care facility at the [place] for evaluation of fever and low blood pressure. CT of the abdomen revealed right lower lobe infiltrate. WBC 22. Urine culture negative. Blood cultures are negative so far. He was started on empiric antibiotics and iv fluid hydration with clinical improvement. WBC normalized and he remained hemodynamically stable during this hospitalization. All his home medications were switched to IV because of patient refusing oral intake. PLAN: patient completed a full course of oral antibiotics for PNA while inpatient. Ct chest in 4-6 weeks to address resolution of findings. - Time Spent with Patient Total time spent providing and/or coordinating discharge services: - Constitutional Vitals: Temp Pulse Resp BP Pulse Ox 98.4 F 78 16 118/71 94 12/12/16 07:05 12/12/16 07:05 12/12/16 07:05 12/12/16 07:05 12/12/16 07:05 General appearance: Present: cooperative, A&O X 2, pleasant, no acute distress. Absent: answers questions appropriately - Eye Eye exam: Present: PERRL, sclera anicteric - Neck Neck exam general surgery: Present: supple, trachea midline. Absent: lymphadenopathy - Respiratory Respiratory exam: Present: CTAB - Cardiovascular Cardiovascular exam: Present: RRR - GI/Abdominal GI/Abdominal exam: Present: normal bowel sounds, soft. Absent: distended, tenderness - Extremities Exam Extremities exam: Absent: pedal edema - Back Exam Back exam: Absent: CVA tenderness (L), CVA tenderness (R) - Neurological Exam Neurological exam: Present: alert. Absent: facial droop, speech deficit
--- NOTE | 2016-12-12 07:50 | Physician Discharge Referral ---
[facility] Referral Info Transfer To: [facility] Provider in Charge: harvey Provider in Charge after Transfer: PCP Institutional Level of Care: Skilled - Diagnosis (1) Pneumonia Status: Acute (2) Hypotension Status: Resolved (3) Hematuria Status: Resolved (4) Schizophrenia Status: Chronic (5) Seizure disorder Status: Chronic (6) Hypothyroidism Status: Chronic (7) PTSD (post-traumatic stress disorder) Status: Chronic - Transfer Medications Home Medications: Acetaminophen [Tylenol Arthritis] 650 mg PO TID PRN MDD 3000MG 12/08/16 [History ] Aspirin 81 mg PO DAILY 12/08/16 [History] Bisacodyl [Dulcolax] 10 mg PO QAM 12/08/16 [History] Cholecalciferol (D-3) [Vitamin D] 1,000 unit PO DAILY 12/08/16 [History] Docusate [Colace] 200 mg PO BID 12/08/16 [History] Haloperidol Lactate [Haldol] 5 mg IM Q2H PRN 12/08/16 [History] Haloperidol Oral Conc [Haldol] 10 mg PO HS 12/08/16 [History] Ibuprofen [Motrin] 400 mg PO Q6HR PRN 12/08/16 [History] LORazepam [Ativan] 1 mg PO QID PRN 12/08/16 [History] LORazepam [Lorazepam Intensol] 1 ml IM Q6H PRN 12/08/16 [History] Levothyroxine [Synthroid] 75 mcg PO 0630 12/08/16 [History] [place] Citrate [[place]] 8 meq PO HS 12/08/16 [History] Mag Hydrox/Aluminum Hyd/Simeth [Cvs Antacid-[place] Liquid] 16 ml PO QID PRN MDD 60ML 12/08/16 [History] Multivitamin [Multi-Day Vitamins] 1 tab PO DAILY 12/08/16 [History] OLANZapine [Zyprexa Zydis] 5 mg PO BID 12/08/16 [History] Polyethylene Glycol 3350 [MiraLAX] 17 gm PO BID 12/08/16 [History] RisperiDONE MICROSPHERES [RisperDAL CONSTA] 37.5 mg IM Q2W 12/08/16 [History] RisperiDONE [Risperidone Odt] 1 mg PO DAILY 12/08/16 [History] RisperiDONE [Risperidone Odt] 4 mg PO HS 07/15/17 [History] Valproic Acid Oral Soln [Depakene Oral Soln] 500 mg PO BID 12/08/16 [History] Zinc Oxide [Diaper Rash Ointment] 1 appl TP BID 12/08/16 [History] Magnesium Oxide [Mag-Ox] 400 mg PO BID tab 12/12/16 [Rx] Allergies/Adverse Reactions: Allergies Penicillins Allergy (Verified 06/27/15 17:42) Anaphylaxis - Respiratory Orders Smoking Cessation: Smoking cessation has been advised. For more information, call the [employer] Quit Line at 8-124-EBHK-NOW. - Lab Orders Lab Orders: Other (include drug levels w/frequency) (ct chest in 4-6 weeks. potassium and magnesium in 1 week) - Advance Directives Code Status: Full Code - Mobility Orders Other (per PT) - Rehabiliation Orders Rehab Potential: Poor - Treatments Skin tear care topically daily PRN per policy, May check for fecal impaction rectally daily PRN, Fleet enema rectally every other day PRN cleansing purposes - Diet Orders Regular (supplements with meals) CERTIFICATION: I certify that the transfer of the above named patient to an Extended Care Facility is necessary for the continuing treatment of the diagnosis listed. The above information is true and accurate reflection of patient's current condition. Confidential - Redisclosure prohibited without a patient's written consent.
[2016-12-12] MEDS: Aspirin 81 MG TAB.CHEW PO SCH (08:10)
[2016-12-12] MEDS: Levofloxacin 750 MG/150 ML 750 MG/150 ML BAG IVPB SCH (08:12)
[2016-12-12] MEDS: Magnesium Oxide 400 MG TABLET PO SCH (08:53)
[2016-12-12] MEDS: OLANZapine 10 MG VIAL IM SCH (08:54)
[2016-12-12] MEDS: Pantoprazole 40 MG VIAL IVP SCH (08:54)
[2016-12-12] MEDS: Valproic Acid INJ 500 MG in 0.9 % Sodium Chloride 100 ML IVPB SCH (09:56)
[2016-12-12 11:10] VITALS: BP 99/62
== END 2016-12-12 12:40 | DRG 194 ==
LOC: 2NENU 01:09 → EMEROO 01:09 → 2NENU 07:41 → 2NNU 07:45 → SUATTDRO 08:38 → 3ANU 12-11 09:55
PROVIDERS: ADMIT Internal Medicine; ATTEND Internal Medicine